=== PATIENT | female | born 2000 | race Caucasian/White ===

== ENCOUNTER 2021-07-05 15:03 | Outpatient (REF) | payer OTHER, SELFPAY ==
[2021-07-05 16:26] LABS: MANUAL DIFF FLAG NO
[2021-07-05 16:30] LABS: Appearance Urine CLEAR; Color Urine YELLOW; Glucose Urine UA NEG (NEG); Leukocyte Esterase Urine TRACE (NEG); Nitrite Urine NEG (NEG); Urine Blood NEG (NEG); Urine Ketones NEG (NEG); Urine Protein NEG (NEG-TRACE)
[2021-07-05 16:39] LABS: Basophils Percent Auto 0.6 % (0-2); Eosinophils Absolute Auto 0.1 X10*3/uL (0.0-0.4); Eosinophils Percent Auto 1.6 % (0-4); Hematocrit 41.4 % (37.0-47.0); Hemoglobin 13.6 g/dl (12.0-16.0); Imm Gran Abs Auto 0.02 X10*3/uL (0.00-0.03); Imm Gran Pct Auto 0.3 % (0.0-0.4); Lymphocytes Percent Auto 28.3 % (20-40); Mean Corpuscular HGB Conc 32.9 g/dl (31.0-35.0); Mean Corpuscular Hemoglobin 29.1 pg (27.0-33.0); Mean Corpuscular Volume 88.5 fL (80.0-98.0); Mean Platelet Volume 9.1 fL (9.4-12.3); Monocytes Absolute Auto 0.5 X10*3/uL (0.1-1.2); Monocytes Percent Auto 7.4 % (2-11); Neutrophils Absolute Auto 4.4 x10*3/uL (2.0-8.3); Neutrophils Percent Auto 61.8 % (45-73); Platelet Count 298 X10*3/uL (160-400); Red Blood Count 4.68 X10*6/uL (4.20-5.50); Red Cell Distribution Width 13.1 % (11.0-16.0); White Blood Count 7.1 X10*3/uL (4.8-10.8)
[2021-07-05 16:41] LABS: Bacteria Urine TRACE /LPF; RBC Urine 0 /HPF (0); Squamous Epithelial Cell Urine 2+ /LPF; WBC Urine 0-2 /HPF (0-4)
[2021-07-05 16:54] LABS: Alanine Aminotransferase 16 U/L (0-31); Albumin Level 4.3 g/dL (3.5-5.0); Alkaline Phosphatase 46 U/L (39-117); Anion Gap 14 (12-20); Aspartate Amino Transferase 20 U/L (5-31); Bilirubin Total 0.5 mg/dL (0.0-1.0); Blood Urea Nitrogen 10 mg/dL (9-16); Calcium 9.6 mg/dL (8.4-10.2); Carbon Dioxide 22 mmol/L (22-29); Chloride 105 mmol/L (96-108); Cholesterol 206 mg/dL; Estimated Glomerular Filt Rate > 60; Glucose Fasting 89 mg/dL (60-99); HDL Cholesterol 62 mg/dL; Iron 108 mcg/dL (30-160); LDL Cholesterol Calculated 129 mg/dl; Percent Iron Saturation 21 % (15-50); Potassium 4.1 mmol/L (3.3-5.1); Sodium 137 mmol/L (135-145); Total Iron Binding Capacity 515 mcg/dL (228-428); Total Protein 7.8 g/dL (6.5-8.0); Triglycerides 76 mg/dL; Unsaturated Iron Binding 407 ug/dL
[2021-07-05 17:09] LABS: Ferritin 10 ng/mL (10-122); TSH reflex Free T4 1.12 uIU/mL (0.32-4.0)
[2021-07-05 17:14] LABS: Vitamin B12 309 pg/mL (200-900)
== END 2021-07-05 15:04 | disposition home or self-care (01) ==
LOC: HO.HMGCLDS 15:03
PROVIDERS: PCP Nurse Practitioner Family; Visit Provider Nurse Practitioner Family
DX: Z00.00 Encounter for general adult medical examination without abnormal findings (principal); D64.9 Anemia, unspecified
CPT/HCPCS: 36415; 80053; 80061; 81001; 82607; 82728; 83540; 84443; 85025

== ENCOUNTER 2021-07-13 13:55 | Outpatient (REF) | payer OTHER, SELFPAY ==
[2021-07-14 13:17] LABS: CT PCR NOT DETECTED (Not Detect.); NG PCR NOT DETECTED (Not Detect.)
== END 2021-07-13 13:56 | disposition home or self-care (01) ==
LOC: HO.HMGCLDS 13:55
PROVIDERS: PCP Nurse Practitioner Family; Visit Provider Nurse Practitioner Family
DX: Z20.2 Contact with and (suspected) exposure to infections with a predominantly sexual mode of transmission (principal)
CPT/HCPCS: 87491; 87591

== ENCOUNTER 2021-12-15 12:05 | Outpatient (REF) | payer OTHER, SELFPAY ==
[2021-12-15 14:31] LABS: Syphilis Screen Nonreactive (Nonreactive)
[2021-12-15 15:28] LABS: CT PCR NOT DETECTED (Not Detect.); NG PCR NOT DETECTED (Not Detect.)
[2021-12-16 08:46] LABS: HIV AB/AG Nonreactive (Nonreactive); HIV Num 1 0.06 S/CO (0.00-0.99)
[2021-12-17 09:46] LABS: Herpes Simplex Type 1 IgG <0.90 index; Herpes Simplex Type 2 IgG <0.90 index
== END 2021-12-15 12:06 | disposition home or self-care (01) ==
LOC: HO.HMGCLDS 12:05
PROVIDERS: PCP Nurse Practitioner Family; Visit Provider Nurse Practitioner Family
DX: Z11.3 Encounter for screening for infections with a predominantly sexual mode of transmission (principal); Z11.8 Encounter for screening for other infectious and parasitic diseases; Z11.4 Encounter for screening for human immunodeficiency virus [HIV]; Z11.59 Encounter for screening for other viral diseases
CPT/HCPCS: 86695; 86696; 86780; 87389; 87491; 87591

== ENCOUNTER 2023-07-26 10:47 | Outpatient (AMB) | payer OTHER, SELFPAY ==
--- NOTE | 2023-07-26 10:48 | MHC.PC.OV ---
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: No Allergies No Known Allergies Allergy (Verified 07/26/23 11:04) Medication List - Last Reconciled 07/26/23 by LORETO Noyola buspirone 5 mg PO BID 30 days etonogestrel-ethinyl estradiol 0.12-0.015 mg/24 hr ([place]) vag rings vaginal rizatriptan 10 mg PO Q2-4H PRN 10 days Tobacco use date assessed: 07/26/23 Dental Screening Dental Screen Date: 07/26/23 Did you have a dental visit in the last 12 months?: No Did you have a dental problem in the last 6 months where you did not have access to dental care?: No Was dental information given to patient?: Patient declined HPI HPI Comments History of Present Illness Details Patient is a 22-year-old female here for physical exam. She has a past medical history significant for: Migraines-currently utilizing rizatriptan with moderate effect. Will also refer to neurology. Anxiety-currently utilizing BuSpar 5 mg p.o. t.i.d.. Has established care with [facility]. 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 1. Little interest or pleasure in doing things: not at all 2. Feeling down, depressed, or hopeless: not at all 3. Trouble falling or staying asleep, or sleeping too much: not at all 4. Feeling tired or having little energy: not at all 5. Poor appetite or overeating: not at all 6. Feeling bad about yourself - or that you are a failure or have let yourself or your family down: not at all 7. Trouble concentrating on things, such as reading the newspaper or watching television: not at all 8. Moving or speaking so slowly that other people could have noticed. Or the opposite - being so fidgety or restless that you have been moving around a lot more than usual: not at all 9. Thoughts that you would be better off or of hurting yourself in some way: not at all Total score: 0 Depression Screening Interpretation: Negative Depression Screening Done: Yes 72966 - PHQ-9 Billing: Yes Source: Developed by Drs. Vasquez Morocho, Taisha Vaughn, Blu Arambula and colleagues, with an educational charlotte from [employer]. Thrive Questionnaire Date Thrive assessed: 07/18/22 AUDIT C Alcohol Use Questionnaire (AUDIT-C) 1. How often do you have a drink containing alcohol?: 2-4 times a month 2. How many drinks containing alcohol do you have on a typical day when you are drinking?: 1 or 2 3. How often do you have six or more drinks on one occasion?: Never Total Score: 2 Score Reviewed/Action Taken: Yes RACHELL-7 AMB Questionnaire RACHELL-7 Date RACHELL - 7 assessed: 07/26/23 Feeling nervous, anxious, or on edge: 1 = Several days Not being able to stop or control worryin = Not at all Worrying too much about different things: 1 = Several days Trouble relaxin = Several days Being so restless that it is hard to sit still: 0 = Not at all Becoming easily annoyed or irritable: 1 = Several days Feeling afraid as if something awful might happen: 0 = Not at all Total RACHELL-7 score (0-4 normal; 5-9 mild; 10-14 moderate; 15-21 severe): 4 Source: Developed by Drs. Vasquez Morocho, Taisha Vaughn, Blu Arambula and colleagues, with an educational charlotte from [employer]. RACHELL-7 Assessment Billing RACHELL-7 Assessment Tool: RACHELL-7 Assessment 55287 Review of Systems Const All systems reviewed & are unremarkable except as noted in HPI and below Reports headache(s) (history of migraines, x2 a week. ) ENT Reports headache(s) (history of migraines, x2 a week. ) Card Denies chest pain and Denies dyspnea Resp Denies dyspnea GI Denies diarrhea, Denies nausea and Denies vomiting Musc Reports back pain (upper back) Neuro Reports headache(s) (history of migraines, x2 a week. ) Psych Denies homicidal ideation and Denies suicidal ideation Physical exam (Primary Care) Vital Signs: Last Vital Signs Pulse 73 07/26/23 10:51 BP 118/70 07/26/23 10:51 Pulse Ox 98 07/26/23 10:51 Care Plan Goal for BP management: BP controlled. BMI result Body Mass Index 32.4 Tobacco/Smoking Status: Tobacco use Status Tobacco use date assessed 07/26/23 07/26/23 10:54 Patient Tobacco Use Status Never used Tobacco 07/26/23 10:49 e-Cigarette/Vaping Use Never Used 07/26/23 10:49 PHQ-9: PHQ-9 Score PHQ-9: Total score 0 07/26/23 10:56 Depression Screening Interpretation: Negative Thrive Assessment: Date of Thrive Assessment Date Thrive assessed 07/18/22 07/26/23 10:49 Const General: cooperative and no acute distress Orientation/consciousness: patient oriented x3 Limitations: no limitations HENMT Head: Yes normal to inspection Ears: TM's normal bilaterally General nose exam: Normal external nose present Mouth: Normal oral and palatal mucosa present Eyes General: appearance normal, both eyes and all related structures Pupils: Equal, round and reactive pupils present EOM: EOMs intact bilaterally Direct Ophthalmoscopy: normal light reflex and no photophobia Neck Neck: Yes normal visual inspection, Yes full ROM and Yes no lymphadenopathy Thyroid: Thyroid normal Carotids: normal carotid upstroke Resp Effort & Inspection: normal respiratory effort Auscultation: clear to auscultation bilaterally Cardio Rate: regular rate Rhythm: regular rhythm Heart sounds: S1 normal heart sound present and S2 normal heart sound present GI Inspection: Yes normal to inspection General: Yes no CVA tenderness Back/Spine/Pelvis Back: no CVA tenderness Cervical Spine: cervical muscular tenderness Skin General skin exam: no rashes or lesions noted Neuro General: patient oriented x3 and deep tendon reflexes 2+ bilaterally Cranial nerves: Yes Equal, round and reactive pupils present Motor exam (neuro): 5/5 motor strength present throughout Extrem General: Yes normal to inspection Psych Attitude: cooperative Thought process: Normal thought process present Thought content: Normal thought content present Insight: Good insight present (Psych) Judgement: Good judgement present (Psych) Assessment and Plan Assessment & Plan (1) Physical exam: Comment: Will draw labs. 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 Patient has established OBGYN Code(s): Z00.00 - Encounter for general adult medical examination without abnormal findings (2) Migraines: Comment: Will give naproxen, will refill small dose of rizatriptan for acute episodes. Will refer to Neurology Code(s): G43.909 - Migraine, unspecified, not intractable, without status migrainosus Qualifiers: Intractability: not intractable Migraine type: other Status migrainosus presence: without status migrainosus Qualified Code(s): G43.809 - Other migraine, not intractable, without status migrainosus (3) Upper back pain: Comment: Will obtain x-ray. Will refer to physical therapy Code(s): M54.9 - Dorsalgia, unspecified Plan: Draw labs Plan Follow up in 6 months. Orders: Orders XR cervical spine 3V Today M54.9 - Dorsalgia, unspecified Referrals Neurology Referral G43.809 - Other migraine, not intractable, without status migrainosus Medications: New naproxen 500 mg PO BID PRN 30 tabs 0RF pain Refilled rizatriptan do not exceed 3 doses per 24 hrs, FOR ACUTE ATTACKS 10 mg PO Q2-4H 10 days PRN 10 tabs 3RF migraine headache Discontinued buspirone Discontinued Reason: Patient Completed Course 5 mg PO BID 30 days 60 tabs 1RF Coding Level of Care Code Est Pt Prev Care 18-39y([id number]) Diagnoses Physical exam Z00.00 Other migraine without status migrainosus, not intractable G43.809 Intractability: not intractable Migraine type: other Status migrainosus presence: without status migrainosus Upper back pain M54.9 Additional Codes RACHELL-7 Assessment Billing - RACHELL-7 Assessment Tool: RACHELL-7 Assessment 51428 ([id number]) Time Spent (min) 25
[2023-07-26 10:51] VITALS: BP 118/70; PULSE 73; O2SAT 98; BMI 32.4
== END 2023-07-26 11:28 | disposition home or self-care (01) ==
PROVIDERS: Visit Provider Nurse Practitioner Primary Care
DX: Z00.00 Encounter for general adult medical examination without abnormal findings (principal); G43.809 Other migraine, not intractable, without status migrainosus; M54.9 Dorsalgia, unspecified
CPT/HCPCS: 99395